=== PATIENT | male | born 1980 | race African-American/Black ===

== ENCOUNTER 2019-08-22 20:59 | Observation (INO) ==
[2019-08-22] MEDS ORDERED: ASPIRIN PO ONE (21:18)
--- NOTE | 2019-08-22 21:35 | Diag Imaging Result Doc PS360 ---
EXAM: CHEST-2 VIEWS INDICATION: CP TECHNIQUE: 2 views COMPARISON: 06/23/2018 FINDINGS: The lungs are grossly clear. There is no discrete pleural fluid collection or pneumothorax. The cardiomediastinal silhouette and central vasculature are grossly unremarkable. IMPRESSION: No evidence of acute pathology by plain radiograph. Electronically signed by Oneil Zhou 08/22/2019 9:32 PM
[2019-08-22 21:39] LABS: BASO# 0.04 X1000 (0.0-0.2); BASO% 0.7 % (0.0-0.8); EOS# 0.13 X1000 (0.0-0.7); EOS% 2.2 % (0.0-10.0); HEMATOCRIT 35.1 % (42.0-52.0); HEMOGLOBIN 11.5 g/dL (14.0-18.0); LYMPH# 2.63 X1000 (1.2-3.4); LYMPH% 44.6 % (20.5-51.1); MCH 28.1 PG (27-31); MCHC 32.8 g/dL (33-37); MCV 85.8 FL (81-99); MONO# 0.44 X1000 (0.11-0.59); MONO% 7.5 % (1.7-9.3); MPV 10.6 FL (7.4-10.4); NEUT# 2.66 X1000 (1.4-6.5); PLT 295 X1000 (130-400); RBC 4.09 XMIL (4.7-6.1); RDW 13.6 % (11.5-14.5)
[2019-08-22 21:48] LABS: INR 1.04; PROTIME 13.7 Seconds (11.0-16.0)
[2019-08-22 22:14] LABS: AGAP 15; ALB/GLOB RATIO 1.6; ALBUMIN 4.5 g/dL (3.5-5.0); ALKALINE PHOSPHATASE 44 U/L (32-122); BUN 24 mg/dL (8-22); CALCIUM 9.6 mg/dL (8.8-10.2); CHLORIDE 104 mmol/L (98-107); COSMO 284; CREATININE 1.5 mg/dL (0.7-1.2); ESTIMATED GFR > 60; GLUCOSE 137 mg/dL (70-104); GOT 44 U/L (10-34); GPT 47 U/L (10-44); POTASSIUM 4.2 mmol/L (3.5-5.1); SODIUM 139 mmol/L (136-145); TCO2 20 mmol/L (25-35); TOTAL BILIRUBIN 0.34 mg/dL (0.20-1.00); TOTAL PROTEIN 7.3 g/dL (6.3-8.3)
[2019-08-22 22:21] LABS: CK PROFILE 2919 U/L (24-204)
[2019-08-22] MEDS ORDERED: NS 1,000 ML IV ONE (22:31)
[2019-08-22 22:39] LABS: CK INDEX 0.8 (0.0-2.5); CK-MB 24.23 ng/mL (0.0-5.0)
--- NOTE | 2019-08-23 00:25 | PROVIDER DOCUMENTATION ---
This chart was entered by Moriah Yoon Scribe, acting as scribe for Michael Pineda MD. HPI-Chest Pain - General Chief Complaint: Chest Pain Stated Complaint: WEAK/HEADACHE/JAW/CHEST PAIN/DIZZY Time Seen by Provider: 08/22/19 22:28 Source: patient Allergies/Adverse Reactions: Patient Allergies Allergy/AdvReac Type Severity Reaction Status Date / Time No Known Allergies Allergy Verified 08/22/19 23:48 Home Medications: Home Medication List Medication Instructions Recorded Confirmed Last Taken Type Unobtainable [Home Meds 08/22/19 08/22/19 Unknown History Unobtainable] - History of Present Illness-CP Nature of Presenting Problem: pt is a 38 yr old male presenting with 2 day complaint of intermittent dizziness and lightheadedness. pt admits tonight(1800) began having chest pain radiating to jaw and back. pt denies any cardiac hx. pt does admit shortness of breath, no nausea or vomiting Location: reports: substernal Chest Pain Radiation: reports: jaw, back Quality of Pain: reports: dull Severity in ED: moderate Onset/Duration: 2 days ago Timing: changing over time, getting worse Context/Activities at Onset: reports: light activity Modifying Factors: improves with: nothing Associated Symptoms: reports: back pain, shortness of breath. denies: nausea Nitro Today/Relief: no nitro taken today Aspirin Treatment Today: 325 mg x 1, provided by ED Prior Chest Pain/Cardiac Workup: reports: no prior chest pain, no prior cardiac workup Similar Symptoms Previously?: No Recently Seen Here or By Another Healthcare Provider: No Review of Systems - Adult - REVIEW OF SYSTEMS - ADULT Constitutional: reports: fatique. denies: fever Eyes: reports: no symptoms reported Ears, Nose, Mouth & Throat: reports: no symptoms reported Cardiovascular: reports: chest pain. denies: palpitations, syncope Respiratory: reports: shortness of breath. denies: cough, wheezing Gastrointestinal: denies: abdominal pain, nausea, vomiting Genitourinary: reports: no symptoms reported Musculoskeletal: reports: back pain, joint pain (jaw), neck pain Integumentary: reports: no symptoms reported Neurological: reports: dizziness/vertigo. denies: headache/migraines, syncope Psychiatric: reports: no symptoms reported Endocrine: reports: no symptoms reported Hematologic/Lymphatic: reports: no symptoms reported Allergic/Immunologic: reports: no symptoms reported All Other Systems: Reviewed and Negative Past History - Adult - PAST MEDICAL HISTORY-ADULT Review of Records: reports: Old Records Reviewed, Nursing Assessment Review, Medications Reviewed, Social history reviewed & non-contributory. Major Childhood Illnesses: reports: denies history Cardiovascular: reports: HTN Respiratory: reports: denies history Gastrointestinal: reports: denies history Obstetrical/Gynecological: reports: denies history Genitourinary: reports: denies history Musculoskeletal: reports: denies history Neurological: reports: denies history Endocrine/Immune: reports: Diabetes Other Conditions: reports: denies history - IMMUNIZATION STATUS Childhood Immunizations: See Nurse Assessment Flu Vaccine: See Nurse Assessment - FAMILY HISTORY Family History: reviewed, not pertinent - SOCIAL HISTORY Smoking: denies Substance Use: denies Living Situation: family Physical Exam-General - PHYSICAL EXAM-ADULT Initial Vital Signs Reviewed: Yes - CONSTITUTIONAL General Appearance: appears well, alert, no apparent distress, obese - EYES Eyes: PERRL/EOMI - HEAD, EARS, NOSE, MOUTH & THROAT HENMT: normocephalic/atraumatic, moist mucous membranes, normal ENT inspection - NECK Neck: non-tender, full range of motion, supple, normal inspection - RESPIRATORY Respiratory: chest non-tender, lungs clear, normal breath sounds, no respiratory distress, no accessory muscle use - CARDIOVASCULAR Cardiovascular: normal peripheral pulses, regular rate, rhythm, no edema - GASTROINTESTINAL (ABDOMEN) Abdominal Exam: normal bowel sounds, non tender, soft - MUSCULOSKELETAL Back Exam: normal inspection, no CVA tenderness, no vertebral tenderness Extremity: normal range of motion, non-tender, normal gait, normal inspection - SKIN Integumentary: normal color, normal turgor, warm/dry - NEUROLOGIC Neurologic: grossly normal, no motor/sensory deficits - PSYCHIATRIC Psych/Mental Status: normal mood/affect, normal thought content, normal thought process, oriented x 3 - HEART Score HEART Score: History: Slightly Suspicious HEART Score: ECG: Non-Specific Repolarization Disturbance/LBBB/PM HEART Score: Age: < or = 45 Years HEART Score: Risk Factors for Atherosclerotic Disease: > or = 3 Risk Factors or History of Atherosclerotic Disease HEART Score: Troponin: > or = 3x Normal Limit Total HEART Score:: 5 Progress - PLAN OF CARE/RESULTS Progress/Plan/Lab Results: Vital Signs - 8 hr 08/22/19 21:05 Temperature 98.7 F Pulse Rate 77 Respiratory Rate 20 Blood Pressure 146/115 O2 Sat by Pulse Oximetry 98 Laboratory Results - last 24 hr 08/22/19 08/22/19 08/22/19 21:10 21:10 21:10 WBC 5.90 RBC 4.09 L Hgb 11.5 L Hct 35.1 L MCV 85.8 MCH 28.1 MCHC 32.8 L RDW Std Deviation 13.6 Plt Count 295 MPV 10.6 H Immature Gran % (Auto) 0.0 Neut % (Auto) 45.0 Lymph % (Auto) 44.6 [place] % (Auto) 7.5 Eos % (Auto) 2.2 Baso % (Auto) 0.7 Immature Gran # (Auto) 0.00 Neut # (Auto) 2.66 Lymph # (Auto) 2.63 [place] # (Auto) 0.44 Eos # (Auto) 0.13 Baso # (Auto) 0.04 PT INR PTT (Actin FS) Sodium 139 Potassium 4.2 Chloride 104 Carbon Dioxide 20 L Anion Gap 15 BUN 24 H Creatinine 1.5 H Estimated GFR/1.73 m2 > 60 BUN/Creatinine Ratio 16 Glucose 137 H Calculated Osmolality 284 Calcium 9.6 Total Bilirubin 0.34 AST 44 H ALT 47 H Alkaline Phosphatase 44 Creatine Kinase 2919 H Creatine Kinase Index 0.8 CK-MB (CK-2) 24.23 H Troponin T High Sens Azo-U-Clrfgpabyib Pept 110 H Total Protein 7.3 Albumin 4.5 Globulin 2.8 Albumin/Globulin Ratio 1.6 08/22/19 08/22/19 21:10 21:10 WBC RBC Hgb Hct MCV MCH MCHC RDW Std Deviation Plt Count MPV Immature Gran % (Auto) Neut % (Auto) Lymph % (Auto) [place] % (Auto) Eos % (Auto) Baso % (Auto) Immature Gran # (Auto) Neut # (Auto) Lymph # (Auto) [place] # (Auto) Eos # (Auto) Baso # (Auto) PT 13.7 INR 1.04 PTT (Actin FS) 27.0 Sodium Potassium Chloride Carbon Dioxide Anion Gap BUN Creatinine Estimated GFR/1.73 m2 BUN/Creatinine Ratio Glucose Calculated Osmolality Calcium Total Bilirubin AST ALT Alkaline Phosphatase Creatine Kinase Creatine Kinase Index CK-MB (CK-2) Troponin T High Sens 149 H* Aej-D-Wcrazwqtcrq Pept Total Protein Albumin Globulin Albumin/Globulin Ratio Orders Category Date Time Status Cardiac Monitoring DIRECTED Care 08/22/19 21:18 Active Oxygen Therapy- ED Nursing DIRECTED Care 08/22/19 21:18 Active Saline Loc NOW Care 08/22/19 21:18 Active CHEST-2 VIEWS [RAD] Stat Exams 08/22/19 21:18 Completed CBC WITH ELECTRONIC DIFF [HEME] Stat Lab 08/22/19 21:10 Completed CK PROFILE [SP CHEM] Stat Lab 08/22/19 21:10 Completed COMPREHENSIVE METABOLIC PANEL [CHEM] Stat Lab 08/22/19 21:10 Completed PRO B-NATRIURETIC PEPTIDE Stat Lab 08/22/19 21:10 Completed PROTIME WITH INR [COAG] Stat Lab 08/22/19 21:10 Completed PTT [COAG] Stat Lab 08/22/19 21:10 Completed TROPONIN T HIGH SENSITIVITY Stat Lab 08/22/19 21:10 Completed TROPONIN T HIGH SENSITIVITY Stat Lab 08/22/19 23:53 Received 0.9% Sodium Chloride Inj [Ns] 1,000 ml Med 08/22/19 22:31 Discontinued IV 999 mls/hr Aspirin Med 08/22/19 21:18 Discontinued 325 mg PO NOW ONE CP/SOB/Palp >45 yrs of Age Stat Oth 08/22/19 21:18 Ordered EKG [EKG] Stat Ther 08/22/19 21:18 Ordered Result Diagrams: 08/22/19 21:10 08/22/19 21:10 - EKG 1 Time of EKG reading by physician:: 21:03 EKG Read and Signed by:: Michael Pineda EKG Interpretation (*Must complete 3 of following elements*): Abnormal Rate: 85 Rhythm: sinus with PVCs Burns: normal QRS: PVC's HI Interval: normal ST Wave: normal - XRAY 1 XRAY Study: Chest Impression: Normal (Signed EXAM: CHEST-2 VIEWS INDICATION: CP TECHNIQUE: 2 views COMPARISON: 06/23/2018 FINDINGS: The lungs are grossly clear. There is no discrete pleural fluid collection or pneumothorax. The cardiomediastinal silhouette and central vasculature are grossly unremarkable. IMPRESSION: No evidence of acute pathology by plain radiograph. Electronically signed by Oneil Zhou 08/22/2019 9:32 PM 08/22/19 371 Interpreting Physician: Oneil Zhou MD Dictated Date/Time: 08/22/192131 cc: Michael Pineda MD;) Comparison with other Films: no changes (06/23/18) - CONSULTS/PCP/HOSPITALIST Notification #1 *Consult/PCP/Hospitalist*: Dr Robledo Time Discussed: 00:24 Consult Disposition: Will see in ED, Admit Departure - Departure Date of Disposition Decision: 08/22/19 Time of Disposition Decision: 23:51 DIAGNOSIS: Chest pain, Elevated troponin, Rhabdomyolysis Disposition: ADMITTED INPATIENT 09 Certified Medical Emergency: Emergent Condition: Fair - Critical Care Note This patient required my direct & personal management of CC.: No Attestation - Physician/ SANDRA Attestation Patient care was provided by Advanced Practice Provider:: No The physician spent face to face time with patient:: Yes Advanced Practice Provider documentation review:: Supervising physician onsite and consulted in the evaluation and care of this patient. The physician did have a face to face encounter with the patient. This chart was documented by the indicated scribe, (Moriah Yoon Scribe) and accurately reflects the services I performed and decisions made by me, Michael Pineda MD, as attested by the provider's signature.
[2019-08-23] MEDS ORDERED: NITROGLYCERIN SL PRN (03:01)
[2019-08-23] MEDS ORDERED: NS 1,000 ML IV ONE (03:01)
[2019-08-23] MEDS ORDERED: ZOFRAN IV PRN (03:01)
[2019-08-23 03:31] LABS: HEMOGLOBIN A1C 5.5 % (4.8-6.0)
[2019-08-23] MEDS: LOVENOX SUBQ SCH (03:34)
--- NOTE | 2019-08-23 04:01 | EKG Report ---
Test Performed on : 08/22/2019 9:03:48 PM Test Reason : CP Blood Pressure : / mmHG Vent. Rate : 085 BPM Atrial Rate : 085 BPM P-R Int : 196 ms QRS Dur : 084 ms QT Int : 350 ms P-R-T Axes : 043 005 018 degrees QTc Int : 416 ms Sinus rhythm. with occasional premature ventricular complexes. Otherwise normal ECG When compared with ECG of 23-JUN-2018 16:53, premature ventricular complexes. are now present Unconfirmed Result
[2019-08-23 04:02] LABS: BASO# 0.04 X1000 (0.0-0.2); BASO% 0.7 % (0.0-0.8); EOS# 0.17 X1000 (0.0-0.7); EOS% 2.8 % (0.0-10.0); HEMATOCRIT 33.6 % (42.0-52.0); HEMOGLOBIN 10.9 g/dL (14.0-18.0); LYMPH# 2.77 X1000 (1.2-3.4); LYMPH% 45.9 % (20.5-51.1); MCH 28.1 PG (27-31); MCHC 32.4 g/dL (33-37); MCV 86.6 FL (81-99); MONO# 0.49 X1000 (0.11-0.59); MONO% 8.1 % (1.7-9.3); MPV 10.4 FL (7.4-10.4); NEUT# 2.57 X1000 (1.4-6.5); NEUT% 42.5 % (42.2-75.2); PLT 270 X1000 (130-400); RBC 3.88 XMIL (4.7-6.1); RDW 13.4 % (11.5-14.5); WBC 6.04 X1000 (4.8-10.8)
[2019-08-23 04:12] LABS: AGAP 13; BUN 21 mg/dL (8-22); CALCIUM 9.3 mg/dL (8.8-10.2); CHLORIDE 105 mmol/L (98-107); COSMO 285; CREATININE 1.5 mg/dL (0.7-1.2); ESTIMATED GFR > 60; GLUCOSE 140 mg/dL (70-104); SODIUM 140 mmol/L (136-145); TCO2 22 mmol/L (25-35)
--- NOTE | 2019-08-23 05:31 | HISTORY AND PHYSICAL ---
HISTORY OF PRESENT ILLNESS: The patient came in with chest pain. He is hypertensive, diabetic. His initial troponin was elevated as well as his CPK. EKG was really unremarkable. We will admit him and trend cardiac markers. We will continue fluids to help dilute the possible rhabdomyolysis, which may be related to fenofibrate. He is also on pravastatin,we will probably hold those medications and follow. Get Cardiology's opinion in the morning. Tis is a face-to- face encounter with Edward Frazier. cc: Rigo Robledo MD
--- NOTE | 2019-08-23 06:58 | HISTORY AND PHYSICAL ---
CHIEF COMPLAINT: Chest pain. HISTORY OF PRESENT ILLNESS: This is a 38-year-old -[place] male who presented to the emergency room with a two-day complaint of intermittent dizziness and lightheadedness. The patient admits around 1800 hours tonight he began having chest pain at work that radiated to his jaw and back. He denies having any cardiac history, however, he does have hypertension, hyperlipidemia, and diabetes mellitus type 2, which is now insulin dependent. The patient does admit having shortness of breath as well with the episode. No nausea or vomiting or diaphoresis. On arrival to the ER he was given aspirin and he has not had any further chest pain. His cardiac enzymes were elevated x2 sets. The first was 149 and the second 2 hours later was trending down at 133. His creatinine is slightly elevated at 1.5 but his GFR is still greater than 60. He was given fluids in the emergency room. His CKs were also elevated at 2919. He will be admitted for further evaluation and treatment. PAST MEDICAL HISTORY: See HPI. PREVIOUS SURGICAL HISTORY: He denies. SOCIAL HISTORY: He works at [employer]. No alcohol, tobacco, or illicit drugs. FAMILY HISTORY: Positive for diabetes, hypertension, and kidney disease. ALLERGIES: No known drug allergies. HOME MEDICATIONS: The patient did not have a list of home medications with him. An order was placed for nursing to reconcile these with his pharmacy. REVIEW OF SYSTEMS: A 14-point review of systems was conducted with the patient. He did have a feeling of dizziness and weakness, as well as the pertinent positives listed above in the HPI. All other systems were reviewed and found to be negative. PHYSICAL EXAMINATION: VITAL SIGNS: Temperature 98.7, pulse 73, respirations 16, blood pressure 133/86, and oxygen saturation is 100% on room air. GENERAL: A pleasant 38-year-old black male lying in the ER stretcher. He answers all questions appropriately. He is alert and oriented x3. HEENT: The head is atraumatic an normocephalic. The pupils are equal, round, and reactive to light. Extraocular eye movement is intact. The sclerae are nonicteric. The conjunctivae are pink. The oral mucosa is moist. NECK: Supple. No JVD. No thyromegaly. The trachea is midline. No cervical lymphadenopathy. CARDIAC: S1, S2 appreciated. No murmurs, gallops, rubs. LUNGS: Clear to auscultation bilaterally. No rhonchi, wheezes, or rales. Symmetric rise and fall with respirations. ABDOMEN: Soft, nondistended, and nontender. Bowel sounds present in all four quadrants. Normoactive. No pulsatile masses. No organomegaly. EXTREMITIES: No cyanosis, clubbing or edema. 2+ pedal pulses bilaterally. GENITOURINARY: No bladder distention, patient voids, otherwise deferred. NEUROLOGICAL: Alert and oriented x3. Cranial nerves II through XII are grossly intact. DIAGNOSTIC DATA: Chest x-ray, no acute pathology. EKG, normal sinus rhythm, rate 85 with PVCs. LABORATORY DATA: White blood cell count 5.90, hemoglobin 11.5, hematocrit 35.1, platelet count 295,000. Coags within normal limits. Sodium 139, potassium 4.2, chloride 104, carbon dioxide 20, BUN 24, creatinine 1.5, glucose 137. AST 44, ALT 47. CK 2919. CK index is 0.8. High sensitivity troponin 149 and on recheck 133. ASSESSMENT AND PLAN: 1. Questionable tlb-QP-icwgrjown myocardial infarction. The patient has complaint of chest pain and elevated troponins. We will consult Cardiology. Stress test tomorrow morning. He certainly has risk factors for coronary artery disease. Trend cardiac enzymes. Place on [*]. Nitroglycerin as needed. 2. Hypertension. Continue home medications once reconciled. The patient is normotensive at this time. 3. Hyperlipidemia. Check a lipid profile. Continue statin. 4. Diabetes mellitus type 2, now insulin dependent with hyperglycemia. Sliding scale insulin and fingerstick blood sugars. Check hemoglobin A1c. 5. Anemia. Check an anemia profile. Further recommendations based on the clinical course. Dictated by YUNIEL Faustin for Rigo Robledo MD cc: YUNIEL Faustin MD
[2019-08-23] MEDS: HUMALOG SUBQ SCH ×4 (07:00→20:56)
--- NOTE | 2019-08-23 07:41 | EKG Report ---
Test Performed on : 08/23/2019 06:45:05 AM Test Reason : CP Blood Pressure : / mmHG Vent. Rate : 075 BPM Atrial Rate : 075 BPM P-R Int : 198 ms QRS Dur : 088 ms QT Int : 380 ms P-R-T Axes : 041 006 019 degrees QTc Int : 424 ms Normal sinus rhythm. Normal ECG When compared with ECG of 22-AUG-2019 21:03, (Unconfirmed) premature ventricular complexes. are no longer present Confirmed by Rasheed Copeland MD ([id number]) on 08/23/2019 8:11:00 AM
[2019-08-23 09:44] LABS: CK INDEX 0.8 (0.0-2.5); CK-MB 18.25 ng/mL (0.0-5.0)
--- NOTE | 2019-08-23 10:17 | CARDIOLOGY CONSULTATION ---
DATE: 08/23/2019 CHIEF COMPLAINT: Chest pain. HISTORY OF PRESENT ILLNESS: Mr. Loaiza is a 38-year-old, black male who presented to the ER with complaints of chest pain that began yesterday evening at work. He was in a seated position. It was located in the left lower lateral chest wall area and it felt like a soreness or tightness. He had some associated dizziness and shortness of breath. It lasted for around a minute. He went to the ER for further evaluation and had an other episode occurring in the waiting room, again lasting for a couple minutes. He has not had any exertional chest pain in the interim. He is diabetic. He does not smoke. PAST MEDICAL HISTORY: Significant for: 1. Diabetes. 2. Hypertension. 3. Hyperlipidemia. SOCIAL HISTORY: He works at [employer]. He does not smoke. FAMILY HISTORY: Significant for hypertension, diabetes, chronic kidney disease. REVIEW OF SYSTEMS: A 10 system review of systems is negative except for those things mentioned in the HPI. PHYSICAL EXAMINATION: Vital Signs: He is afebrile. His heart rate is 71. His blood pressure is 134/84. Generally, he is in no acute distress. HEENT: Oropharynx is moist. Normal dentition. Eye examination shows pink conjunctivae and white sclerae. Neck Examination: Shows no obvious thyromegaly or thyroid tenderness. Cardiovascular: He sounds to be in a regular rate and rhythm. He has no obvious murmurs. He has no S3. He has no lower extremity edema. Chest Examination: Sounds clear bilaterally. He has no increased work of breathing. Abdomen: Soft, nontender, nondistended. He has no obvious organomegaly. Skin Examination: Warm and dry throughout without any rashes. Neurological: He is moving all extremities well. He has no lateralizing deficits. PERTINENT DATA: His chest x-ray shows no evidence of any acute pathology. He had an EKG that was checked on the at 2103. It showed sinus rhythm, PVC identified. No obvious ischemic changes. No signs of previous infarct. He had a subsequent EKG checked on the at 6:45. Again, sinus rhythm. No obvious ischemic changes. His white count is 6, hematocrit is 33, his platelet count is 270,000, his MCV is 86. His INR yesterday was 1. His sodium is 140, potassium is 4, BUN is 21, creatinine is 1.5. His BUN and creatinine in June were 34 and 1.6. His troponin was elevated on initial check at 1:49. Most recently, it was checked and was 124. This is a high sensitivity check. His direct LDL was 82, his HDL was 30. ASSESSMENT: Mr. Loaiza is a 38-year-old, black male who presented with chest pain. PLAN: This would be termed a non-ST elevation OH presently. We will plan for left heart catheterization today. Risks, benefits, and alternatives have been discussed with the patient and he agrees to proceed. I will initiate him on a beta blockade. He is on 25 of carvedilol at home once daily. We will continue this at 12.5mg BID. He is on aspirin. I will place him on high-intensity statin therapy as his LDL was 82. He is on 80 of pravastatin at home. I will switch him to 80 of atorvastatin. Further recommendations to follow the results of the cardiac catheterization. cc: Bhaskar Rock MD MTDD
[2019-08-23] MEDS: ASPIRIN EC PO SCH (10:26)
[2019-08-23] MEDS: PRILOSEC PO SCH (10:26)
[2019-08-23] MEDS: TYLENOL PO PRN ×2 (10:30→18:36)
[2019-08-23] MEDS ORDERED: HEPARIN 1000 UNITS/NS 2,000 UNIT/1,000 ML IV.SOLN ONE (11:20)
[2019-08-23] MEDS ORDERED: HEPARIN ONE (13:43)
[2019-08-23] MEDS ORDERED: VERSED ONE (13:50)
[2019-08-23] MEDS ORDERED: DILAUDID ONE (13:50)
[2019-08-23] MEDS ORDERED: NS 1,000 ML ONE (13:51)
[2019-08-23] MEDS ORDERED: ANESTHESIA PB SET 88 IN 5742 ONE (13:51)
[2019-08-23] MEDS ORDERED: SODIUM BICARBONATE 8.4% 150 MEQ in D5W 1,000 ML IV SCH (15:30)
--- NOTE | 2019-08-23 16:45 | EKG Report ---
Test Performed on : 08/23/2019 4:30:42 PM Test Reason : post heart cath Blood Pressure : / mmHG Vent. Rate : 070 BPM Atrial Rate : 070 BPM P-R Int : 196 ms QRS Dur : 088 ms QT Int : 378 ms P-R-T Axes : 038 018 003 degrees QTc Int : 408 ms Normal sinus rhythm. Normal ECG When compared with ECG of 23-AUG-2019 06:45, No significant change was found Confirmed by Rasheed Copeland MD ([id number]) on 08/24/2019 4:35:27 PM
--- NOTE | 2019-08-23 20:11 | CARDIAC CATH REPORT ---
PROCEDURE NAME: - INDICATION: Non ST-elevation VA. PROCEDURES PERFORMED: 1. Left heart catheterization. 2. Selective coronary angiography. PROCEDURE IN DETAIL: Mr. Loaiza was brought to the catheterization laboratory in fasting state. Informed consent was obtained. Prepped in the usual fashion. He was anesthetized on the right radial artery after Epifanio test proved adequate. Radial cocktail was administered. Catheters were introduced. Hemodynamic measurements were made. Left heart catheterization was performed from this angle with a JR4. A JR4 was used to image the right coronary. We were unable to adequately cannulate the left coronary from this position. We then turned attention to the right femoral. It was anesthetized and a 5-English sheath was placed via modified Seldinger technique. Catheters were introduced and images were obtained of the left coronary with a JL4. At the conclusion of the procedure the right radial artery sheath was removed and the TR band was left inflated at 10 cc of air. Good capillary refill. Good hemostasis. The right femoral sheath was left in place pending an ACT. IV contrast 5 mL. Blood loss 5-10 mL. Visipaque 160 mL. FINDINGS: 1. The left main appears normal and originates from the left coronary cusp. 2. The left anterior descending and circumflex vessels are large and normal, and originate from the left main. There was no obvious flow-limiting lesion identified in any of these territories. 3. The right coronary has a somewhat anterior takeoff with no significant flow-limiting disease. It is a right dominant vessel. 4. The LV pressure is 121/6 with an EDP of 21. Aortic blood pressure is 140/83 with a mean of 109. ASSESSMENT: Mr. Loaiza is a 38-year-old gentleman who presented with chest pain and troponin elevation consistent with [id number] VA. PLAN: At this point he does not appear to have any flow-limiting lesions. This does not appear to be acute coronary syndrome. Considering the IV contrast load, we will administer fluids overnight and check a BMP in the morning. cc: Bhaskar Rock MD
[2019-08-23] MEDS: COREG PO SCH (20:51)
[2019-08-23] MEDS ORDERED: LIPITOR PO SCH (21:00)
[2019-08-24] MEDS: HUMALOG SUBQ SCH ×2 (06:33→11:23)
[2019-08-24] MEDS: PRILOSEC PO SCH (06:34)
[2019-08-24] MEDS: LOVENOX SUBQ SCH (06:35)
[2019-08-24 07:02] LABS: AGAP 12; BUN 15 mg/dL (8-22); CALCIUM 8.8 mg/dL (8.8-10.2); CHLORIDE 102 mmol/L (98-107); COSMO 282; CREATININE 1.3 mg/dL (0.7-1.2); ESTIMATED GFR > 60; GLUCOSE 163 mg/dL (70-104); IRON SATURATION 17 %; POTASSIUM 3.7 mmol/L (3.5-5.1); SODIUM 139 mmol/L (136-145); TCO2 25 mmol/L (25-35); TIBC 262 ug/dL; TOTAL IRON 44 ug/dL (53-167); UNBOUND IRON 218 ug/dL (112-346)
[2019-08-24 07:38] LABS: FERRITIN 478 ng/mL (30-400)
[2019-08-24 08:22] VITALS: BP 153/101
[2019-08-24] MEDS: COREG PO SCH (08:32)
[2019-08-24] MEDS: ASPIRIN EC PO SCH (08:32)
[2019-08-24] MEDS ORDERED: CARVEDILOL 25 MG PO SCH (09:00)
--- NOTE | 2019-08-24 13:26 | ECHO REPORT ---
ORDER DATE: 08/24/2019 INDICATION: Chest pain. FINDINGS: 1. The right atrium appears normal in size. 2. Mild tricuspid regurgitation. RV systolic pressure of 24. 3. Normal RV size and systolic function. 4. Mild pulmonic insufficiency. 5. Mild left atrial enlargement with a dimension of 4.3 cm. 6. No mitral valve prolapse. Some mitral regurgitation. 7. Normal LV size. End-diastolic dimension of 4.9. Mild left ventricular hypertrophy. Posterior and interventricular septal wall thickness 1.2 cm each. Normal LV systolic function. Estimated EF of 60% to 65% with normal wall motion. 8. Aortic valve opens well. It is trileaflet. No evidence of stenosis or insufficiency. 9. The aorta appears normal in the visualized segments. 10. No pericardial effusion is seen. cc: Bhaskar Rock MD
--- NOTE | 2019-08-24 20:42 | CARDIOLOGY PROGRESS NOTE ---
DATE: 08/24/2019 SUBJECTIVE: Mr. Loaiza reported no difficulties overnight. He has no pain complaints. OBJECTIVE: Vital signs: He is afebrile, heart rate 76. His blood pressure is 153/101. His systolics ranged anywhere from the 130s to the 150s. General: He is in no acute distress. Cardiovascular: He is in a regular rate and rhythm. He has no murmurs. He has no S3. He has no lower extremity edema. Respiratory: His chest sounds clear to auscultation bilaterally. He has no increased work of breathing. Abdomen: Soft, nontender. PERTINENT DATA: His sodium is 139, potassium 3.7, BUN 15, creatinine is 1.3. ASSESSMENT: Mr. Loaiza is a 38-year-old gentleman with diabetes who presented with chest pain that was concerning for a non-ST elevation myocardial infarction. PLAN: He had a cardiac catheterization yesterday that showed no flow-limiting disease. I would continue to treat medically. His BUN and creatinine are improved today compared to yesterday after fluids overnight. From my standpoint, he can be discharged home. He will follow up with me in the office, and we will continue to manage his blood pressure. cc: Bhaskar Rock MD
--- NOTE | 2019-08-25 14:55 | DISCHARGE SUMMARY ---
ADMISSION DATE: 08/23/2019 DISCHARGE DATE: 08/24/2019 PRIMARY CARE PROVIDER: None. CONSULTATIONS: Dr. Bhaskar Rock. PERTINENT PROCEDURES: Left heart catheterization did not show any flow-limiting lesions. Does not appear to be acute coronary syndrome. DISCHARGE DIAGNOSES: 1. Non ST-elevation myocardial infarction. The patient was followed by Dr. Bhaskar Rock. He underwent a left heart catheterization that did not show any acute coronary syndrome. He did not have any flow-limiting lesions. 2. Hyperlipidemia. Continue statin. 3. Hypertension. Continue home medications. 4. Diabetes mellitus. Continue home regimen. 5. Anemia, stable. HOSPITAL COURSE: Briefly, Mr. Loaiza is a 38-year-old male who presented to the ED with complaints of chest pain that began while he was at work in a seated position. It was located in the left lower lateral chest wall area, felt like soreness or tightness. It was associated with dizziness and shortness of breath that lasted for about a minute. He went to the ED to be evaluated. He had another recurrence while waiting in the waiting room. It lasted for a couple of minutes. There was no exertional component. However, he does have risk factors with diabetes, hypertension, hyperlipidemia. Further workup in the ED revealed a non-ST elevated myocardial infarction. He did not have any ST elevation on his EKG. Dr. Bhaskar Rock was consulted with Cardiology. They decided to proceed with a left heart catheterization. He did not have any flow- limiting lesions. No signs of acute coronary syndrome. He will be discharged back home to continue on his home medications, diabetic diet, and regular exercise, and good blood sugar control. VITAL SIGNS: At time of discharge, temperature is 97.9 degrees, heart rate 76, respirations 18, blood pressure is 153/101, O2 is 100% on room air. DISCHARGE MEDICATIONS: 1. Aspirin 81 mg p.o. daily. 2. Carvedilol 25 mg p.o. daily. 3. Citalopram CD 360 mg p.o. daily. 4. Fenofibrate 40 mg p.o. daily. 5. Glucophage 500 mg p.o. b.i.d. 6. Januvia 100 mg p.o. daily. 7. Lantus SoloSTAR 30 units p.o. at bedtime. 8. Losartan potassium 25 mg p.o. daily. 9. Pravastatin sodium 80 mg p.o. daily. 10. Spironolactone 25 mg p.o. daily. FOLLOWUP: Mr. Loaiza is being discharged back home with self care. He is to take all medications as prescribed. He is to adhere to a diabetic diet. Keep a tight control on his blood glucose as well as blood pressures and lipids to adhere to lifestyle changes. Follow up with Dr. Bhaskar Rock on 08/30/2019 at 1:30 p.m. He is to obtain a primary care provider from the list that has been provided to him. He can return to the ED or call 911 for any worsening of symptoms. Dictated by YUNIEL Liz for Johan Armando MD Addendum: Patient seen and examined by myself. Agree with YUNIEL note. It reflects my assessment and plan. Patient is being discharged in stable condition. Will be seen by Lead Process Engineer as already scheduled. cc: MD Bhaskar Au MD MTDD
== END 2019-08-24 14:58 | disposition home or self-care (01) | DRG 282 ==
LOC: ED 20:59 → EDIPHOLD 08-23 02:36 → SUATTDRO 08-23 02:36 → INTOOBSV 08-23 02:36 → 2N 08-23 16:03
PROVIDERS: ATTEND Internal Medicine